=== PATIENT | female | born 1965 | race Caucasian/White ===

== ENCOUNTER 2018-10-17 08:11 | Outpatient (REF) | payer OTHER, SELFPAY ==
[2018-10-18 11:39] LABS: Campylobacter PCR SEE COMMENTS; Salmonella PCR SEE COMMENTS; Shiga Toxin PCR SEE COMMENTS; Shigella/Enteroinvasive Ecoli SEE COMMENTS
== END 2018-10-17 08:31 ==
LOC: LBN 08:11
PROVIDERS: PCP Nurse Practitioner Family; Visit Provider Nurse Practitioner Family
DX: R19.7 Diarrhea, unspecified (principal)
CPT/HCPCS: 87505; 87324

== ENCOUNTER 2019-01-13 09:54 | Outpatient (CLI) | payer OTHER, SELFPAY ==
[2019-01-13 13:08] LABS: BUN 20 mg/dL (7-18); CREATININE 0.99 mg/dL (0.55-1.02); Estimated GFR 58.45 (mL/min/1.73m2)
== END 2019-01-13 10:14 ==
PROVIDERS: PCP Nurse Practitioner Family; Visit Provider Nurse Practitioner Family
DX: R60.0 Localized edema (principal)
CPT/HCPCS: 36415; 84520; 82565

== ENCOUNTER 2019-03-09 07:32 | Outpatient (CLI) | payer OTHER, SELFPAY ==
[2019-03-09 09:29] LABS: Bilirubin Negative (Negative); Blood Negative (Negative); Clarity Clear; Glucose Negative (Negative); Ketones Negative (Negative); Leukocyte Esterase Trace (Negative); Nitrite Negative (Negative); Specific Gravity 1.025 (1.005-1.025); Urobilinogen 0.2 EU/dL (Up TO 0.2); pH 5.5 (5-8)
[2019-03-09 09:41] LABS: Calculated LDL 130; Cholesterol 228 mg/dL (50-200); HDL Cholesterol 53 mg/dL (40-60); Triglyceride 227 mg/dL (30-150)
[2019-03-09 10:06] LABS: Bacteria Few HPF (Negative); Crystals Few Amorphous HPF (Negative); Epithelial Cells Few HPF (Negative); Mucus Heavy (Negative); RBC 0-2 (0-2)
[2019-03-09 10:07] LABS: C & S Indicated? Yes
== END 2019-03-09 07:52 ==
PROVIDERS: PCP Nurse Practitioner Family; Visit Provider Nurse Practitioner Family
DX: R60.0 Localized edema (principal); E78.5 Hyperlipidemia, unspecified
CPT/HCPCS: 80061; 83721; 81003; 81015; 87086

== ENCOUNTER 2019-08-12 01:10 | Outpatient (CLI) | payer OTHER, SELFPAY ==
--- NOTE | 2019-08-12 16:20 | DI.MAMMO_ITS ---
EXAM: MAMMO SCREENING CLINICAL HISTORY: SCREENING, Z12.31 TECHNIQUE: Mammograms were interpreted according to the usual protocol including computer analysis w bookletmobile CAD system, tomosynthesis and C-view imaging. COMPARISON: [id number] FINDINGS: The breasts are composed of scattered fibroglandular densities, breast density category B. There are no suspicious masses or suspicious microcalcifications. There has been no interval change when eulalio red with the previous examinations. IMPRESSION: Category 1, negative mammogram. Yearly screening mammography is recommended. BI-RADS Cat 1 - Negative Breast Density - Category B - Scattered areas of fibroglandular density
== END 2019-08-12 01:30 ==
PROVIDERS: PCP Nurse Practitioner Family; Visit Provider Nurse Practitioner Family
DX: Z12.31 Encounter for screening mammogram for malignant neoplasm of breast (principal)
CPT/HCPCS: 77063; 77067

== ENCOUNTER 2019-11-17 14:33 | Outpatient (CLI) | payer OTHER, SELFPAY ==
--- NOTE | 2019-11-17 14:00 | DI.RAD_ITS ---
EXAM: XR KNEE RT 3V AP,LAT,FORREST CLINICAL HISTORY: eval R knee pain TECHNIQUE: COMPARISON: No exams were available for comparison FINDINGS: Three views were obtained. The cartilaginous joint space of the medial tibiofemoral joint appears mi ldly narrowed. There is marginal osteophyte formation most marked posteriorly on the proximal tibia. No other significant bony or soft tissue abnormality seen. IMPRESSION: DJD predominantly involving medial tibiofemoral joint.
== END 2019-11-17 14:53 ==
PROVIDERS: PCP Nurse Practitioner Family; Visit Provider Student in an Organized Health Care Education/Training Program
DX: M25.561 Pain in right knee (principal); M17.11 Unilateral primary osteoarthritis, right knee
CPT/HCPCS: 73562

== ENCOUNTER 2019-12-09 14:23 | Outpatient (CLI) | payer OTHER, SELFPAY ==
--- NOTE | 2019-12-09 15:35 | DI.MRI_ITS ---
EXAM: MR LOWER JOINT RT WO CLINICAL HISTORY: continued right knee pain, difficulty ambulating,INTERNAL DERANGEMENT,RT KNEE INJU RY,M23.91. TECHNIQUE: Multiplanar multisequence MRI was performed. COMPARISON: No exams were available for comparison FINDINGS: MR examination of the knee was performed according to the usual protocol. Minimal subchondral signal abnormality noted in the central portion of the patella. Mildly abnormal signal also present in med ial tibial plateau and central portion of the tibia as well as minimally in the medial femoral condyl e, presumably on a degenerative basis. Mild marginal osteophyte formation noted involving the joints of the knee, most marked at the medial tibiofemoral joint. Articular cartilage of the patella is mildly thinned and shows mildly abnormal signal. Central chond ral defect is noted measuring roughly 8 x 10 millimeters. Articular cartilage of the tibiofemoral joints is thinned. There are focal cartilage defects of the medial femoral condyle, particularly on its central aspect and minimal articular cartilage roughening is noted involving medial tibial articular surface and lateral tibial articular surface without foca l cartilage defect. No significant collateral ligament abnormality is seen. Question minimal fraying of lateral meniscus posteriorly. No discrete tear. There is a complex nond isplaced tear of the posterior horn of the medial meniscus. No cruciate ligament tear is seen. Apart from the aforementioned patellar articular cartilage abnormalities, no significant abnormality of the extensor mechanism is seen. Mild soft tissue edema noted anterior to the anterior tibial tube rcle and patellar tendon without patellar tendon tear. Minimal tendinosis may be present at the regan llar tendon attachment on the patella. IMPRESSION: Degenerative changes including articular cartilage thinning and focal defects of all 3 joint compartm ents. Posterior horn medial meniscal tear, nondisplaced DATA REPOSITORY:
== END 2019-12-09 14:43 ==
PROVIDERS: PCP Nurse Practitioner Family; Visit Provider Student in an Organized Health Care Education/Training Program
DX: M25.561 Pain in right knee (principal); M23.91 Unspecified internal derangement of right knee; M17.11 Unilateral primary osteoarthritis, right knee; S83.241A Other tear of medial meniscus, current injury, right knee, initial encounter
CPT/HCPCS: 73721

== ENCOUNTER 2020-03-12 08:43 | Outpatient (CLI) | payer OTHER, SELFPAY ==
[2020-03-13 17:39] LABS: COVID-19 RT-PCR UVMMC Result Negative (Negative)
== END 2020-03-12 09:03 ==
PROVIDERS: PCP Nurse Practitioner Family; Visit Provider Student in an Organized Health Care Education/Training Program
DX: Z11.59 Encounter for screening for other viral diseases (principal); Z01.818 Encounter for other preprocedural examination
CPT/HCPCS: U0003

== ENCOUNTER 2020-03-16 08:21 | Day surgery (SDC) | payer OTHER, SELFPAY ==
[2020-03-16] VITALS (11 sets, daily range): BP systolic 116–155; BP diastolic 63–97; PULSE 67–84; RESP 14–24; TEMP 36.2–37.2; O2SAT 93–100
--- NOTE | 2020-03-16 07:51 | HPE_ITS ---
Documented by User: CASH Umana 03/16/20 08:49 Date of service: 03/16/20 Assessment and Plan Assessment and plan (1) Tear of medial meniscus of right knee: Status: Acute Assessment and plan: Right knee arthroscopy with partial medial meniscectomy. Details of surgery were discussed with patient as well as risks and pertinent anatomy. All questions were answered. History of Present Illness History of Present Illness Chief Complaint: Right knee pain Narrative: Flor is a 54 year old female who comes in today for a right knee arthroscopy. She has been dealing with right knee pain for about 8 months now, and she states that it is worse when she gets up from a seated position or if she is standing for a prolonged period of time. She has had an injection which did not relieve her pain for any length of time. She had imaging done including an MRI which revealed some OA in the right knee that involves all three compartments, but she also has a meniscal tear of the posterior horn. Since she has failed conservative treatment and she does have a meniscal tear, Dr. Griffith does offer a right knee arthroscopy with partial medial meniscectomy and Flor is anxious to proceed. Pertinent Surgical Information Patient denies history of hypertension, CVA, NM, angina, asthma, COPD, renal or liver disorders, hepatitis, bleeding disorders, diabetes, immune or thyroid disorders. No complications from anesthesia. Review of Systems Constitutional Constitutional: Denies fever(s) ENT Ears, Nose, Mouth, and Throat: Denies dizziness and Denies sore throat Cardiovascular Cardiovascular: Denies chest pain, Denies palpitations and Denies dyspnea Respiratory Respiratory: Denies cough and Denies dyspnea Gastrointestinal Gastrointestinal: Denies abdominal pain, Denies melena, Denies hematochezia, Denies diarrhea, Denies nausea and Denies vomiting Genitourinary Genitourinary: Denies hematuria and Denies dysuria Neurologic Neurologic: Denies dizziness Endocrine Endocrine: Denies palpitations [facility] Medical History Asthma (Chronic) Surgical History section x2 History of thoracotomy (Acute) Social History Smoking/Tobacco Use Status: Never Alcohol Intake: current Alcohol Intake frequency: holidays/special occasions only Drug use: Never Substance use type: does not use Current gender identity: female Do you feel safe at home: Yes Do you feel safe in your relationship?: Yes Meds Home Medications and Allergies Home Medications Medication Instructions Recorded Confirmed Type Zyrtec 10 mg PO DAILY 10/17/13 03/16/20 History calcium carb and citrate-vitD3 1 cap DAILY 10/17/13 03/16/20 History esomeprazole magnesium [Nexium] 40 mg PO DAILY 10/17/13 03/16/20 History gabapentin 300 mg PO DAILY 10/17/13 03/16/20 History multivitamin [Daily Multi-Vitamin] 1 cap PO DAILY 10/17/13 03/16/20 History sertraline [Zoloft] 200 mg PO DAILY 10/17/13 03/16/20 History cyclobenzaprine 5 mg PO PRN PRN 06/28/15 03/16/20 History trazodone 50 mg PO HS tab-cap 07/17/17 03/16/20 History montelukast [Singulair] 10 mg PO DAILY 03/01/18 03/16/20 History lamotrigine 25 mg tablet 50 mg PO DAILY tab 11/17/19 03/16/20 History Glucosamine Chondroitin 1 cap PO BID 03/12/20 03/16/20 History atorvastatin 40 mg PO HS 03/12/20 03/16/20 History acetaminophen 500 mg PO Q4H PRN #30 cap 03/16/20 Rx hydrocodone-acetaminophen 1 tab PO Q6H PRN #6 tab 03/16/20 Rx ibuprofen 600 mg PO TID PRN #30 tab 03/16/20 Rx Allergies Allergy/AdvReac Type Severity Reaction Status Date / Time Penicillins Allergy Unknown Skin Rash Unverified 03/16/20 08:25 rizatriptan benzoate AdvReac Unknown chst tight Unverified 03/16/20 08:25 [From [facility]] Exam Const General: cooperative and no acute distress Orientation: alert and awake [facility] Head: normocephalic and atraumatic General nose exam: no nasal discharge Eyes Conjunctivae: conjunctivae normal Sclera: sclerae normal Resp Effort & Inspection: normal respiratory effort Auscultation: clear to auscultation bilaterally and no wheezes Cardio Rate: regular rate Rhythm: regular rhythm Heart Sounds: S1 normal, S2 normal and no murmurs GI Palpation: soft, no hepatosplenomegaly and nontender Auscultation: normal bowel sounds Documented by User: Tereso Griffith MD 03/16/20 09:20 [facility] Medical History Asthma (Chronic) Surgical History section x2 History of thoracotomy (Acute) Social History Smoking/Tobacco Use Status: Never Alcohol Intake: current Alcohol Intake frequency: holidays/special occasions only Drug use: Never Substance use type: does not use Current gender identity: female Do you feel safe at home: Yes Do you feel safe in your relationship?: Yes Meds Home Medications and Allergies Home Medications Medication Instructions Recorded Confirmed Type Zyrtec 10 mg PO DAILY 10/17/13 03/16/20 History calcium carb and citrate-vitD3 1 cap DAILY 10/17/13 03/16/20 History esomeprazole magnesium [Nexium] 40 mg PO DAILY 10/17/13 03/16/20 History gabapentin 300 mg PO DAILY 10/17/13 03/16/20 History multivitamin [Daily Multi-Vitamin] 1 cap PO DAILY 10/17/13 03/16/20 History sertraline [Zoloft] 200 mg PO DAILY 10/17/13 03/16/20 History cyclobenzaprine 5 mg PO PRN PRN 06/28/15 03/16/20 History trazodone 50 mg PO HS tab-cap 07/17/17 03/16/20 History montelukast [Singulair] 10 mg PO DAILY 03/01/18 03/16/20 History lamotrigine 25 mg tablet 50 mg PO DAILY tab 11/17/19 03/16/20 History Glucosamine Chondroitin 1 cap PO BID 03/12/20 03/16/20 History atorvastatin 40 mg PO HS 03/12/20 03/16/20 History acetaminophen 500 mg PO Q4H PRN #30 cap 03/16/20 Rx hydrocodone-acetaminophen 1 tab PO Q6H PRN #6 tab 03/16/20 Rx ibuprofen 600 mg PO TID PRN #30 tab 03/16/20 Rx Allergies Allergy/AdvReac Type Severity Reaction Status Date / Time Penicillins Allergy Unknown Skin Rash Unverified 03/16/20 08:25 rizatriptan benzoate AdvReac Unknown chst tight Unverified 03/16/20 08:25 [facility]
[2020-03-16] MEDS: Lactated Ringers 1,000 ML 80 ML IV (08:55)
--- NOTE | 2020-03-16 09:12 | PDOC.DSDIS_ITS ---
Documented by User: CASH Umana 03/16/20 09:50 Discharge Plan Disposition Patient Disposition: HOME Condition: Good Discharge Details Reason For Visit: Right knee arthroscopy Attending Provider: Tereso Griffith Primary Care Provider: Yashira Cole Home Meds and New Rx's Prescriptions: New ibuprofen 600 mg tablet 600 mg PO TID PRN (Reason: pain) Qty: 30 RF: 0 acetaminophen 500 mg capsule 500 mg PO Q4H PRN (Reason: pain) Qty: 30 RF: 0 hydrocodone-acetaminophen 5-325 mg tablet 1 tab PO Q6H PRN PRN (Reason: pain) Qty: 10 RF: 0 Continued trazodone 50 MG tablet 50 mg PO HS RF: 0 multivitamin [Daily Multi-Vitamin] 1 EACH tablet 1 cap PO DAILY RF: 0 sertraline [Zoloft] 100 MG tablet 200 mg PO DAILY RF: 0 esomeprazole magnesium [Nexium] 40 MG capsule,delayed release(DR/EC) 40 mg PO DAILY RF: 0 gabapentin 300 MG capsule 300 mg PO DAILY RF: 0 calcium carb and citrate-vitD3 1 EACH tablet extended release 1 cap DAILY RF: 0 Zyrtec 10 MG capsule 10 mg PO DAILY RF: 0 lamotrigine [Lamictal] 25 mg tablet 50 mg PO DAILY RF: 0 cyclobenzaprine 10 MG tablet 5 mg PO PRN PRNRF: 0 atorvastatin 40 mg Tablet 40 mg PO HS RF: 0 Glucosamine Chondroitin 550-30-1 mg Capsule 1 cap PO BID RF: 0 montelukast [Singulair] 10 MG tablet 10 mg PO DAILY RF: 0 Discontinued acetaminophen [Tylenol Extra Strength] 500 MG tablet 1,000 mg PO PRN PRNRF: 0 ibuprofen [Advil] 200 MG tablet 800 mg PO PRN PRNRF: 0 Discharge Instructions Stand Alone Forms: Crutch Training Instructions, [facility] Knee Arthroscopy, Ralph Anderson ([facility]) Referrals: Tereso Griffith MD [ [facility] STAFF PHYSICIAN] - Equipment/Supplies: Partial Weight Bearing Crutches Activity:: Activity as Tolerated Remove Dressings/Wound Care:: 72 hours Shower/Bathe:: 72 hours Diet:: As Tolerated Discharge Orders Discharge Orders: Discharge Order (Routine); Ordered 03/16/20 Ordered By: Cali Mccabe Discharge Data Discharge Date/Time-TO BE ENTERED AT DEPARTURE: 03/16/20 13:30 Discharge Comment: Pt wheeled out to her spouse's vehichle. DS: Diagnosis Discharge Diagnosis (1) Tear of medial meniscus of right knee: Status: Acute Documented by User: Tereso Griffith MD 03/16/20 13:52 Discharge Plan Disposition Patient Disposition: HOME Condition: Good Discharge Details Reason For Visit: Right knee arthroscopy Attending Provider: Tereso Griffith Primary Care Provider: Yashira Cole Home Meds and New Rx's Prescriptions: New ibuprofen 600 mg tablet 600 mg PO TID PRN (Reason: pain) Qty: 30 RF: 0 acetaminophen 500 mg capsule 500 mg PO Q4H PRN (Reason: pain) Qty: 30 RF: 0 hydrocodone-acetaminophen 5-325 mg tablet 1 tab PO Q6H PRN PRN (Reason: pain) Qty: 10 RF: 0 Continued trazodone 50 MG tablet 50 mg PO HS RF: 0 multivitamin [Daily Multi-Vitamin] 1 EACH tablet 1 cap PO DAILY RF: 0 sertraline [Zoloft] 100 MG tablet 200 mg PO DAILY RF: 0 esomeprazole magnesium [Nexium] 40 MG capsule,delayed release(DR/EC) 40 mg PO DAILY RF: 0 gabapentin 300 MG capsule 300 mg PO DAILY RF: 0 calcium carb and citrate-vitD3 1 EACH tablet extended release 1 cap DAILY RF: 0 Zyrtec 10 MG capsule 10 mg PO DAILY RF: 0 lamotrigine [Lamictal] 25 mg tablet 50 mg PO DAILY RF: 0 cyclobenzaprine 10 MG tablet 5 mg PO PRN PRNRF: 0 atorvastatin 40 mg Tablet 40 mg PO HS RF: 0 Glucosamine Chondroitin 550-30-1 mg Capsule 1 cap PO BID RF: 0 montelukast [Singulair] 10 MG tablet 10 mg PO DAILY RF: 0 Discontinued acetaminophen [Tylenol Extra Strength] 500 MG tablet 1,000 mg PO PRN PRNRF: 0 ibuprofen [Advil] 200 MG tablet 800 mg PO PRN PRNRF: 0 Discharge Instructions Stand Alone Forms: Crutch Training Instructions, [facility] Knee Arthroscopy, Ralph Anderson ([facility]) Referrals: Tereso Griffith MD [ [facility] STAFF PHYSICIAN] - Equipment/Supplies: Partial Weight Bearing Crutches Activity:: Activity as Tolerated Remove Dressings/Wound Care:: 72 hours Shower/Bathe:: 72 hours Diet:: As Tolerated Discharge Orders Discharge Orders: Discharge Order (Routine); Ordered 03/16/20 Ordered By: Cali Mccabe Discharge Data Discharge Date/Time-TO BE ENTERED AT DEPARTURE: 03/16/20 13:30 Discharge Comment: Pt wheeled out to her spouse's vehichle.
[2020-03-16] MEDS: ceFAZolin 2 GM/50 ML BAG IVPB (09:40)
[2020-03-16] MEDS: Bupivacaine 0.5% Pres-Free 30 ML VIAL (09:50)
[2020-03-16] MEDS: fentaNYL 100 MCG/2 ML VIAL IVP ×2 (10:58→11:08)
[2020-03-16] MEDS: ACETAMINOPHEN 1,000 MG/100 ML BTL 100 MG (11:26)
[2020-03-16] MEDS: HYDROcodone 5/Acetaminophen 325 TAB PO ×2 (12:01→12:57)
--- NOTE | 2020-03-16 13:52 | W.PM.OP ---
Date of service: 03/16/20 Time of Service: 11:52 Operative Note Operative Note DATE OF PROCEDURE: 03/16/20 PRE-OP DIAGNOSIS: Right knee medial meniscal tear, chondromalacia POST-OP DIAGNOSIS: same PROCEDURE: Right knee arthroscopic partial medial meniscectomy SURGEON: Tereso Griffith ANESTHESIA: MACKENZIE ESTIMATED BLOOD LOSS: 0 PATHOLOGY: none sent TOURNIQUET TIME: 0 COMPLICATIONS: None Patient was transported to: PACU Patient's condition: stable Indications: I have seen Flor in clinic for symptoms of a meniscus tear. This was confirmed based on MRI and exam findings. Nonoperative measures were exhausted but disability and pain persisted. I discussed knee arthroscopy with meniscal intervention with the patient. I reviewed the risks of the procedure to include, but not limited to, bleeding, infection, pain, stiffness, damage to nerves or vessels, recurrence, blood clot. Despite these risks, the patient elected to proceed. Findings: A diagnostic arthroscopy was performed with the following findings: Suprapatellar Pouch: Significant inflammation, no loose bodies Medial Compartment: Complex medial meniscal tear with the primary radial component at the horn and extending towards the root, intact meniscal root, grade II/III chondromalacia of the femur and grade 1 changes of the tibia, no loose bodies Notch: ACL and PCL were intact Lateral Compartment: No meniscal tear, intact meniscal root, no significant chondromalacia or signs of arthritis, no loose bodies Patellofemoral Compartment: Focal area of grade II chondromalacia over the apex of the patella, no apparent patellar maltracking Procedure Description: Flor was greeted in the preoperative holding area where the correct side was identified and marked. The consent was reviewed with the patient and signed. The history and physical was updated. All questions were answered. She was taken back to the operating room. The patient was placed into the supine position on the operating room table. A nonsterile tourniquet was placed high onto the leg but not used. All bony prominences were well padded. Prophylactic antibiotics in the form of cefazolin were administered. The right leg was then prepped with Chloraprep and draped in a standard fashion with stockinette and extremity drape. A timeout to confirm correct identity, side and site, procedure, allergies, anesthesia, and medical concerns was performed. The leg was placed into a pneumatic leg kilpatrick, [id number]. A standard lateral portal was made at the lateral border of the patella tendon in line with the inferior pole of the patella, soft spot. The skin and deep tissue was incised sharply and the blunt trochar was inserted atraumatically. A diagnostic arthroscopy was performed and the findings are listed above. The suprapatellar pouch had some notable inflammatory change. The patellofemoral articulation showed focal area of grade II chondromalacia at the apex as well as good tracking. The lateral gutter had no loose bodies and the medial gutter had no loose bodies. The knee was brought into some valgus stress in extension to open the medial compartment. A medial portal was made, localized by a spinal needle. The portal was created with an #11 blade through skin and capsule under direct visualization avoiding any meniscal injury. A probe was then inserted into the medial compartment. The medial compartment was fully inspected. The chondral surface of the tibia showed some diffuse grade I chondromalacia and the surface of the femur showed grade II/III chondromalacia over the distal aspect. There is no exposed bone. The medial meniscus had a complex meniscal tear which had a primary radial component between the posterior horn and the root. There is a large loose fragment. After evaluation, the meniscus was debrided down to a stable base using a series of biters and arthroscopic paula. It was probed afterwards to confirm that the tear had been removed and the meniscus was stable. The notch was then inspected which showed an intact ACL and an intact PCL. The leg was then brought into a figure of 4 position. The lateral compartment was fully inspected with the arthroscope and a probe. The chondral surface of the lateral femur showed no significant chondromalacia. The chondral surface of the lateral tibia showed no significant chondromalacia. The lateral meniscus had no meniscal tear. The arthroscope was brought back into the suprapatellar pouch and the leg was in full extension. Some of the inflammatory changes were debrided with a shaver. The knee was thoroughly irrigated with the arthroscopic fluid on high flow and pressure. Inflow was stopped and excess fluid was removed. The wounds were closed with 4-0 Nylon. They were dressed with Xeroform, 4x4 gauze, ABD pad, Kerlix and an BRADEN wrap. A cryo-cuff was applied. The patient tolerated the procedure well and was returned to the Same Day Surgery area in a stable condition suffering no known complication.
== END 2020-03-16 13:30 | disposition home or self-care (01) ==
PROVIDERS: PCP Nurse Practitioner Family; Visit Provider Student in an Organized Health Care Education/Training Program
PROC: (CPT 29870; principal; 2020-03-16 09:30)
DX: S83.231A Complex tear of medial meniscus, current injury, right knee, initial encounter (principal); X58.XXXA Exposure to other specified factors, initial encounter; M94.261 Chondromalacia, right knee
CPT/HCPCS: 29881; NC; E0114; J0131; J0690; J1100; J1885; J2405; J3010

== ENCOUNTER 2020-08-16 03:21 | Outpatient (REF) | payer OTHER, SELFPAY ==
[2020-08-17 17:24] LABS: SARS-CoV-2 RNA Not Detected (NotDetected); SARS-CoV-2 RNA Source Nasal/Nares
== END 2020-08-16 03:41 ==
LOC: LBO 03:21
PROVIDERS: PCP Nurse Practitioner Family; Visit Provider Nurse Practitioner Family
DX: Z11.59 Encounter for screening for other viral diseases (principal)
CPT/HCPCS: U0003

== ENCOUNTER 2020-11-09 01:00 | Outpatient (CLI) | payer OTHER, SELFPAY ==
--- NOTE | 2020-11-09 16:02 | DI.MAMMO_ITS ---
EXAM: MG MAMMO SCREENING CLINICAL HISTORY: SCREENING, Z12.31. TECHNIQUE: Bilateral full field digital CC and MLO mammographic images were obtained with 3D tomosyn thesis and utilizing computer aided detection (CAD). COMPARISON: Prior mammograms dating back to 2010, the most recent being July 2019. FINDINGS: In the central aspect of the right breast there is a nodular density evident on 3D cc imaging which i s located approximately 7 cm in from the nipple. Spot compression 3D cc view and ultrasound recommen ded. In the right breast there is a noncalcified lobulated 7 x 5 millimeter nodule located approximately 4 cm in from the nipple. Spot compression view and ultrasound recommended. There are no malignant-ap pearing microcalcification groups in this region nor elsewhere in either breast. Benign oil cyst not ed medially in left breast. There is no significant architectural distortion nor skin thickening-re traction. IMPRESSION: Bilateral nodules as described above. Bilateral spot compression 3D views and breast ultrasound jessica mmended BI-RADS Category 0 - Assessment Incomplete: Need additional imaging evaluation Breast Density - Category B - Scattered areas of fibroglandular density Breast density Category C or D implies that the patient has dense breast tissue. Dense breast tissue can make it harder to find cancer on a mammogram. Dense breast tissue is also associated with an incr eased risk of breast cancer. This information about the result of the mammogram report was provided to the patient to raise their awareness. Use this report when you speak with the patient about their risks for breast cancer, which includes their family history. At that time, you may recommend additional screening tests (Ultrasoun d or MRI) as these tests may add significant information. A negative radiographic report should not delay biopsy if a dominant or clinically suspicious mass is present. Up to ten percent of cancers are not identified on mammography. A negative report may reinforce clinical impression. Adenosis and dense breasts may obscure an underlying neoplasm. False positive reports average 6 to 10%. Patient will receive a letter notifying them of these results.
== END 2020-11-09 01:01 ==
LOC: DI 01:00
PROVIDERS: PCP Nurse Practitioner Family; Visit Provider Nurse Practitioner Family
DX: Z12.31 Encounter for screening mammogram for malignant neoplasm of breast (principal); R92.8 Other abnormal and inconclusive findings on diagnostic imaging of breast
CPT/HCPCS: 77063; 77067

== ENCOUNTER 2020-11-17 12:26 | Outpatient (REF) | payer OTHER, SELFPAY ==
[2020-11-17 13:21] LABS: Bilirubin Negative (Negative); Blood Negative (Negative); Clarity Sl Cloudy (Clear); Glucose Negative (Negative); Ketones Negative (Negative); Leukocyte Esterase Trace (Negative); Nitrite Negative (Negative); Specific Gravity 1.015 (1.005-1.025); Urobilinogen 0.2 EU/dL (Up TO 0.2)
[2020-11-17 13:31] LABS: Bacteria Few HPF (Negative); C & S Indicated? Yes; Casts Negative LPF (Negative); Crystals Negative HPF (Negative); Epithelial Cells Few HPF (Negative); Mucus Negative (Negative); RBC 0-2 HPF (0-2)
== END 2020-11-17 12:27 | disposition home or self-care (01) ==
LOC: LBN 12:26
PROVIDERS: PCP Nurse Practitioner Family; Visit Provider Nurse Practitioner Family
DX: R31.29 Other microscopic hematuria (principal)
CPT/HCPCS: 81003; 81015; 87086

== ENCOUNTER 2020-11-19 02:54 | Outpatient (CLI) | payer OTHER, SELFPAY ==
--- NOTE | 2020-11-19 14:20 | DI.MAMMO_ITS ---
EXAM: MG MAMMO SCREEN CALL BACK BI CLINICAL HISTORY: F/U MAMMO, BILAT NODULES TECHNIQUE: Spot compression views and tomographic imaging were performed. COMPARISON: Two thousand eleven through 09 November 2020 FINDINGS: Right breast:No suspicious masses or suspicious microcalcifications are seen. No persistent abnormality is seen on the additional views performed. The findings are consistent wit h overlying fibroglandular tissue. There has been no significant change from prior exams. Left breast: There is a persistent smoothly marginated nodule with a central fatty hilum consistent w ith intramammary lymph node. This is not appear significantly changed from previous exams. IMPRESSION: BI-RADS Category 1, Negative Yearly screening mammography is recommended. Breast Density - Category B, scattered fibroglandular densities.
== END 2020-11-19 02:55 ==
LOC: DI 02:55
PROVIDERS: PCP Nurse Practitioner Family; Visit Provider Nurse Practitioner Family
DX: Z12.31 Encounter for screening mammogram for malignant neoplasm of breast (principal); R92.8 Other abnormal and inconclusive findings on diagnostic imaging of breast; N64.59 Other signs and symptoms in breast
CPT/HCPCS: 77063; 77067

== ENCOUNTER 2021-01-12 07:40 | Outpatient (RCR) | payer OTHER, SELFPAY ==
[2021-01-12 08:03] LABS: Abs Immature Grans 0.01 10^3/uL (0.0-0.06); Absolute Basophil Count 0.04 10^3/uL (0.0-0.2); Absolute Eosinophil Count 0.13 10^3/uL (0.0-0.7); Absolute Lymphocyte Count 2.67 10^3/uL (1.2-3.4); Absolute Monocyte Count 0.56 10^3/uL (0.1-0.8); Absolute Neutrophil Count 4.32 10^3/uL (1.2-6.7); Basophils % 0.5; Eosinophils % 1.7; HCT 39.3 % (36.0-46.0); HGB 12.9 g/dL (11.2-15.7); Immature Grans % 0.1; Lymphocytes % 34.5; MCH 30.1 pg (27.0-33.0); MCHC 32.8 % (32.0-36.0); MCV 91.8 fL (80-95); MPV 10.2 fL (8.0-11.0); Monocytes % 7.2; Nucleated RBC 0 %; Platelet Count 281 10^3/uL (130-400); RBC 4.28 10^6/uL (3.93-5.22); RDW 13.4 % (11.7-14.6); WBC 7.73 10^3/uL (4.4-10.8)
[2021-01-12 08:19] LABS: ALT 35 U/L (14-59); AST 17 U/L (15-37); Albumin 3.8 g/dL (3.4-5.0); Alkaline Phosphatase 161 U/L (46-116); BUN 26 mg/dL (7-18); Bilirubin, Total 0.3 mg/dL (0.2-1.0); CREATININE 1.1 mg/dL (0.55-1.02); Calcium 8.9 mg/dL (8.5-10.1); Calculated LDL 87 mg/dL (<100); Chloride 104 mmol/L (98-107); Cholesterol 172 mg/dL (<200); Estimated GFR 51.38 (mL/min/1.73m2); Glucose 115 mg/dL (74-106); HDL Cholesterol 55 mg/dL (40-60); Potassium 4.1 mmol/L (3.5-5.1); Sodium 141 mmol/L (136-145); Total Protein 7.7 g/dL (6.4-8.2); Triglyceride 154 mg/dL (<150)
[2021-01-12 11:08] LABS: Bilirubin Negative (Negative); Blood Negative (Negative); Clarity Clear (Clear); Glucose Negative (Negative); Ketones Negative (Negative); Leukocyte Esterase Trace (Negative); Nitrite Negative (Negative); Specific Gravity 1.025 (1.005-1.025); Urobilinogen 0.2 EU/dL (Up TO 0.2); pH 5.5 (5-8)
[2021-01-12 11:29] LABS: Bacteria Few HPF (Negative); C & S Indicated? Yes; Casts Negative LPF (Negative); Crystals Negative HPF (Negative); Epithelial Cells Few HPF (Negative); Mucus Trace (Negative); RBC Negative HPF (0-2)
== END 2021-01-21 23:59 | disposition home or self-care (01) ==
LOC: INF 07:40
PROVIDERS: PCP Nurse Practitioner Family; Visit Provider Nurse Practitioner Family
DX: R31.29 Other microscopic hematuria (principal); G95.0 Syringomyelia and syringobulbia
CPT/HCPCS: 36415; 80053; 80061; 81003; 81015; 85025; 87086

== ENCOUNTER 2021-09-02 09:29 | Outpatient (CLI) | payer OTHER, SELFPAY ==
[2021-09-02 15:46] LABS: Abs Immature Grans 0.04 10^3/uL (0.0-0.06); Absolute Basophil Count 0.03 10^3/uL (0.0-0.2); Absolute Eosinophil Count 0.12 10^3/uL (0.0-0.7); Absolute Lymphocyte Count 4.05 10^3/uL (1.2-3.4); Absolute Monocyte Count 0.89 10^3/uL (0.1-0.8); Absolute Neutrophil Count 5.37 10^3/uL (1.2-6.7); Basophils % 0.3; Eosinophils % 1.1; HCT 38.9 % (36.0-46.0); HGB 12.5 g/dL (11.2-15.7); Immature Grans % 0.4; Lymphocytes % 38.6; MCH 29.7 pg (27.0-33.0); MCHC 32.1 % (32.0-36.0); MCV 92.4 fL (80-95); MPV 10.5 fL (8.0-11.0); Monocytes % 8.5; Neutrophils % 51.1; Nucleated RBC 0 %; Platelet Count 304 10^3/uL (130-400); RBC 4.21 10^6/uL (3.93-5.22); RDW 13.4 % (11.7-14.6); RDW-SD 45.7 fL
[2021-09-02 16:40] LABS: ALT 36 U/L (14-59); AST 21 U/L (15-37); Alkaline Phosphatase 165 U/L (46-116); Amylase 32 U/L (25-115); Anion Gap 7.1 mmol/L (3-11); BUN 17 mg/dL (7-18); Bilirubin, Total 0.3 mg/dL (0.2-1.0); CO2 29.9 mmol/L (21.0-32.0); Calcium 9.4 mg/dL (8.5-10.1); Chloride 102 mmol/L (98-107); Estimated GFR 57.15 (mL/min/1.73m2); Glucose 120 mg/dL (74-106); Lipase 88 U/L (73-393); Potassium 4.5 mmol/L (3.5-5.1); Sodium 139 mmol/L (136-145); Total Protein 7.6 g/dL (6.4-8.2)
[2021-09-07 20:24] LABS: GGT 44 U/L (5-55)
[2021-09-09 10:37] LABS: Hepatitis A Antibody IgM Negative (Negative); Hepatitis B Core Antibody Negative (Negative); Hepatitis B surface Ag Negative (Negative); Hepatitis C Ab w Rflx HCV PCR Negative (Negative)
== END 2021-09-02 09:30 | disposition home or self-care (01) ==
LOC: LBO 09-08 09:36
PROVIDERS: PCP Nurse Practitioner Family; Visit Provider Nurse Practitioner Family
DX: R11.0 Nausea (principal); R74.8 Abnormal levels of other serum enzymes; Z11.59 Encounter for screening for other viral diseases
CPT/HCPCS: 36415; 80053; 83690; 86704; 86709; 86803; 87340; 82150; 82977; 85025

== ENCOUNTER 2021-10-03 03:24 | Outpatient (CLI) | payer OTHER, SELFPAY ==
[2021-10-03 16:06] LABS: Source Nasal/Nares
[2021-10-03 20:09] LABS: COVID-19 PCR Negative (Negative)
== END 2021-10-03 03:25 | disposition home or self-care (01) ==
LOC: LBO 03:24
PROVIDERS: PCP Nurse Practitioner Family; Visit Provider Surgery
DX: Z20.822 Contact with and (suspected) exposure to COVID-19 (principal)
CPT/HCPCS: 87635

== ENCOUNTER 2021-10-05 09:53 | Day surgery (SDC) | payer OTHER, SELFPAY ==
--- NOTE | 2021-10-05 07:22 | ENDO_ITS ---
Date of service: 10/05/21 Time of Service: 11:25 Endoscopy Report DATE OF PROCEDURE: 10/05/21 PRE-OP DIAGNOSIS: Abdominal pain and nausea POST-OP DIAGNOSIS: same (chronic gastritis, duodenal diverticulum, gastric polyps) PROCEDURE: EGD with biopsies SURGEON: Sharifa Diop ANESTHESIA TYPE: General:No Airway (Leon Nagel, LEONEL) ESTIMATED BLOOD LOSS: 2 PATHOLOGY: other (antrum bx, gastric polyps bx, GE junction bx) COMPLICATIONS: None DISPOSITION: same day INDICATIONS: piedad is here today because she has not been feeling well for a couple of months. She has had constant nausea, and intermittent diarrhea and RUQ/Epigastric pain. Labs drawn were unremarkable Discussed differential with Piedad of Cholelithiasis/Cholecystitis vs Gastritis/H.pylori infection Discussed repeating an EGD with biopsies to rule out H. pylori. I will also order an US of her abdomen Decrease Nexium to previous dose and add Carafate TID and Zofran Risks, benefits and complications have been reviewed. Complications include but are not limited to bleeding, pain, perforation, sore throat, aspiration, and adverse reaction to the medications. Questions were entertained and answered to their satisfaction and they wished to proceed. No guarantees were given or implied. EGD under sedation FINDINGS: chronic inflammation of the stomach and esophagus Duodenal diverticulum PROCEDURE DESCRIPTION: After informed consent was obtained the patient was take to the procedure room and placed in a supine position. Monitors were applied and a time out was done. The patients name, date of , procedure type, allergies to medications and metal in their body was reviewed. A bite block was placed and the patient was sedated. Once sedated and comfortable the gastroscope was advanced through the oropharynx which was grossly normal into the esophagus. The proximal and mid- esophagus were normal. In the distal esophagus there was mild inflammation noted. The scope was advanced into the stomach and through the pylorus into the 3rd portion of the duodenum. The duodenum was noted to be normal. There was a duodenal diverticulum. The scope was retracted back into the stomach and biopsies were done to rule out H. pylori. There were no ulcers. There were numerous Fundic gland polyps some that looked irritated. The scope was retrofl exed. The cardia and fundus were noted to be normal. There was no hiatal hernia noted. The scope was retracted back into the esophagus and biopsies were done of the GE junction to rule out Ryder's. The Z line was regular. The GE junction was at 38 cm. The scope was removed and the patient was woken up and taken back to [facility] in stable condition. Follow up: I will order a HIDA scan and see the patient afterwards
--- NOTE | 2021-10-05 07:23 | W.PM.DSUDISC ---
Discharge Plan Disposition Patient Disposition: HOME Condition: Good Discharge Details Reason For Visit: Nausea/RUQ/epicgastric pain Attending Provider: Sharifa Diop Primary Care Provider: Yashira Cole Home Meds and New Rx's Prescriptions: Continued halobetasol propionate 0.05 % cream 1 applic topical DAILY PRNRF: 0 epinephrine 0.3 mg/0.3 mL auto-injector 0.3 mg IM ONCE RF: 0 albuterol sulfate [Ventolin HFA] 90 mcg/actuation HFA aerosol inhaler 1 puff inhalation Q4H PRNRF: 0 clobetasol 0.05 % cream 1 applic topical DAILY PRNRF: 0 sucralfate [Carafate] 1 gram tablet 1 g PO TID 14 Days Qty: 42 RF: 0 ondansetron HCl [Zofran] 4 mg tablet 4 mg PO Q6H PRN (Reason: nausea and vomiting) Qty: 30 RF: 0 trazodone 50 MG tablet 50 mg PO HS RF: 0 multivitamin [Daily Multi-Vitamin] 1 EACH tablet 1 cap PO DAILY RF: 0 sertraline [Zoloft] 100 MG tablet 200 mg PO DAILY RF: 0 esomeprazole magnesium [Nexium] 40 MG capsule,delayed release(DR/EC) 40 mg PO DAILY RF: 0 gabapentin 300 MG capsule 300 mg PO DAILY RF: 0 calcium carb and citrate-vitD3 1 EACH tablet extended release 1 cap DAILY RF: 0 Zyrtec 10 MG capsule 10 mg PO DAILY RF: 0 lamotrigine [Lamictal] 25 mg tablet 50 mg PO DAILY RF: 0 cyclobenzaprine 10 MG tablet 5 mg PO PRN PRNRF: 0 atorvastatin 40 mg Tablet 40 mg PO HS RF: 0 Glucosamine Chondroitin 550-30-1 mg Capsule 1 cap PO BID RF: 0 ibuprofen 600 mg tablet 600 mg PO TID PRN (Reason: pain) Qty: 30 RF: 0 acetaminophen 500 mg capsule 500 mg PO Q4H PRN (Reason: pain) Qty: 30 RF: 0 montelukast [Singulair] 10 MG tablet 10 mg PO DAILY RF: 0 Discharge Instructions Instructions: Gastritis (DC) Additional Instructions: Findings: mild chronic inflammation of the stomach and esophagus polyps throughout your stomach most likely due to chronic inflammation and use of PPI ( Nexium) duodenal diverticulum Follow up: after the HIDA scan Please call if you develop: fevers >101.5 Nausea or Vomiting Abdominal pain that is not transient Rectal bleeding that is more then a tbsp A hard abdomen and inability to pass gas DAY SURGERY UNIT POST ENDOSCOPY INSTRUCTIONS Instructions for everyone who is given Anesthesia: For your safety, please do the following for the next 24 Hours: a. Do not drive or operate dangerous equipment b. Do not drink alcohol beverages or use any recreational drugs for the first 24 hours or while taking pain medications. The medications in your body may have a reaction that can be dangerous. c. Do not make any important decisions or sign any important papers 1. Generally there are no restrictions on your activity after a day or so has gone by, but you may feel a bit fatigued for a few days. 2. After you arrive home you may have a light meal and return to a normal diet as you can tolerate it without feeling sick to your stomach. 3. After surgery, you may feel pain or discomfort. This should be only transient, but if it persists please contact your doctor. 4. If there are any questions regarding the findings of your procedure, please feel free to contact your doctor. 6. If you are unable to contact your doctor with a problem, contact the hospital at [phone]. 7. Continue all your regular medications unless directed otherwise. I understand the above instructions and have no questions. Signature of Patient or Responsible Adult Escort Date/Time Name of Responsible Adult Escort Signature of Nurse Date/Time Activity:: Activity as Tolerated Diet:: As Tolerated Discharge Orders Discharge Orders: Discharge Order (Routine); Ordered 10/05/21 Ordered By: Sharifa Diop
[2021-10-05 10:19] VITALS: BP 126/73; PULSE 66; RESP 17; TEMP 36.1; O2SAT 96
[2021-10-05] MEDS: Lactated Ringers 1,000 ML 80 ML IV (10:45)
--- NOTE | 2021-10-05 11:00 | W.ANESPRE ---
General Info Date of Service Date Performed: 10/05/21 Height: 5 ft 3 in Weight: 98.6 kg Body Mass Index (BMI): 38.5 Surgical Procedure: Operation Date: 10/05/21 10:20 Proposed Procedures Side Surgeon p Gastroscopy Sharifa iDop MD Meds Allergies and Home Medications Allergies Allergy/AdvReac Type Severity Reaction Status Date / Time bacitracin Allergy Mild rash Verified 10/05/21 10:10 [From Neosporin ([id number])] neomycin Allergy Mild rash Verified 10/05/21 10:10 [From Neosporin ([id number])] polymyxin B Allergy Mild rash Verified 10/05/21 10:10 [From Neosporin ([id number])] Penicillins Allergy Unknown Skin Rash Unverified 10/05/21 10:10 mold Allergy Anaphylaxis Verified 10/05/21 10:10 rizatriptan benzoate AdvReac Unknown Other (See Unverified 10/04/21 10:39 [From Maxalt] Comment) Home Medication Medication Instructions Recorded Zyrtec 10 mg PO DAILY 10/17/13 calcium carb and citrate-vitD3 1 cap DAILY 10/17/13 esomeprazole magnesium [Nexium] 40 mg PO DAILY 10/17/13 gabapentin 300 mg PO DAILY 10/17/13 multivitamin [Daily Multi-Vitamin] 1 cap PO DAILY 10/17/13 sertraline [Zoloft] 200 mg PO DAILY 10/17/13 cyclobenzaprine 5 mg PO PRN PRN 06/28/15 trazodone 50 mg PO HS tab-cap 07/17/17 montelukast [Singulair] 10 mg PO DAILY 03/01/18 lamotrigine 25 mg tablet 50 mg PO DAILY tab 11/17/19 Glucosamine Chondroitin 1 cap PO BID 03/12/20 atorvastatin 40 mg PO HS 03/12/20 acetaminophen 500 mg PO Q4H PRN #30 cap 03/16/20 ibuprofen 600 mg PO TID PRN #30 tab 03/16/20 albuterol sulfate 90 mcg/actuation 1 puff INHALATION Q4H PRN g 09/22/21 aerosol inhaler clobetasol 0.05 % topical cream 1 applic TOPICAL DAILY PRN 09/22/21 epinephrine 0.3 mg/0.3 mL 0.3 mg IM ONCE 09/22/21 injection, auto-injector halobetasol propionate 0.05 % 1 applic TOPICAL DAILY PRN 09/22/21 topical cream ondansetron HCl 4 mg tablet 4 mg PO Q6H PRN #30 tab 09/22/21 sucralfate 1 gram tablet 1 g PO TID 14 Days #42 tab 09/22/21 Current Visit Medications: Current Medications Generic Name Dose Route Start Last Admin Trade Name Freq PRN Reason Stop Dose Admin Hyoscyamine Sulfate 0.125 mg 10/05/21 07:24 Hyoscyamine 0.125 Mg Sl/Oral/Chew SL DIRECTED PRN Ringer's Solution 1,000 mls @ 80 mls/hr 10/05/21 06:00 10/05/21 10:45 IV 11/03/21 23:59 80 mls/hr INFUSION SADI Administration IV Miscellaneous Supplies 1 each 10/05/21 06:00 Iv Access IV 11/03/21 23:59 DIRECTED SADI Ondansetron HCl 4 mg 10/05/21 07:24 Ondansetron 4 Mg/2 Ml Vial IVP Q4H PRN PRN Nausea / Vomiting Sodium Chloride 0 ml 10/05/21 06:00 Normal Saline Flush 10 Ml Syr IV 11/03/21 23:59 PRN PRN Sodium Chloride 0 ml 10/05/21 06:00 Normal Saline 10 Ml Vial IJ 11/03/21 23:59 DIRECTED PRN Sterile Water 0 ml 10/05/21 06:00 Water,Injection,Sterile 10 Ml Vial IJ 11/03/21 23:59 DIRECTED PRN PFSH Active Problems Active Problems: Problem Status Onset Code GERD (gastroesophageal reflux disease) K21.9 Localized osteoarthritis of right knee M17.11 Abdominal pain R10.9 Nausea R11.0 Medical History Medical History (Updated 10/05/21 @ 10:12 by Sneha Lerner) Asthma Depression Encounter for screening for other viral diseases Hyperlipidemia Internal derangement of right knee Lichen sclerosus Tear of medial meniscus of right knee Surgical History Surgical History (Updated 10/05/21 @ 10:11 by Sneha Lerner) section x2 History of thoracotomy Hx of colonoscopy Hx of esophagogastroduodenoscopy S/P arthroscopic partial medial meniscectomy right knee Tobacco Smoking/Tobacco Use Status: Never Alcohol Alcohol Intake: current Alcohol intake frequency: holidays/special occasions only Alcohol type: beer, wine and hard liquor Substance Use Substance use: Never Substance use type: does not use Details: alcohol: t-10, one drink Vital Signs and Lab Results Vital Signs Most Recent Vital Signs in EMR: Most Recent Vital Signs Temp Pulse Resp BP Pulse Ox 36.1 C L 66 17 126/73 96 10/05/21 10:19 10/05/21 10:19 10/05/21 10:19 10/05/21 10:19 10/05/21 10:19 Lab Results Blood Type / Crossmatch: No Data to Display Complete Blood Count: No Data to Display Complete Metabolic Panel: No Data to Display Liver Function Panel: No Data to Display Coagulation Panel: No Data to Display Cardiac Panel: No Data to Display Arterial Blood Gas: No Data to Display Venous Blood Gas: No Data to Display Pancreas Panel: No Data to Display Thyroid Panel: No Data to Display Infectious Disease: Coronavirus (COVID-19)(PCR) Negative (Negative) 10/03/21 11:05 10/03/21 Coronavirus 2019 Source Nasal/Nares 10/03/21 11:05 10/03/21 Blood Cultures: No Data to Display Toxicology Panel: No Data to Display Imaging and Studies Imaging and Studies Study information below may be from another EMR and interpreted by another provider. Please see original notes in EMR for more complete details. Echocardiogram Summary: Reviewed Anesthesia Assessment and Plan Anesthesia History Personal History: No History of Anesthesia Complications Family History: No Family History of Anesthesia Complications Exercise Tolerance Exercise Tolerance: Metabolic Equivalents>4 Pertinent Negatives Pertinent Negatives: No Symptoms of GERD, No Major Cardiovascular Symptoms or Complaints and No History of CVA/TIA Cardiac & Pulmonary Exam Cardiac Exam: Normal S1/S2 Heart Sounds Pulmonary Exam: Clear Bilateral Breath Sounds Implantable Cardiac Device Does patient have a Pacemaker or an ICD?: No Airway Exam Known Difficult Airway: No Mallampati Class: 3 Mouth Opening: Narrow (< 3cm) Thyromental Distance: Greater than 3 cm Neck Range of Motion: Full ROM Neck Circumference: Normal Teeth Condition: Normal Dentition ASA Classification ASA Score: ASA 3 Emergency Case?: No NPO Status NPO Status: NPO Clears >2 hours, Solids >8 hours Anesthesia Plan Resuscitation Status: Full Code Anesthesia Technique: General Anesthesia Airway Planned: Natural Airway Monitors Used: Standard Monitors
[2021-10-05 11:01] VITALS: BMI 38.5
--- NOTE | 2021-10-05 11:15 | STOM_PTH ---
PATIENT: Flor Kellogg LOC: [facility] U#:[id number] AGE/SX: 56/F ROOM: RE10/05/[address]: Sharifa Diop MD : [id number] BED: DIS: 10/05/2021 SPEC #: [id number] RECD: 10/05/21 13:02 STATUS: LUZ MARIA REWoody #: [id number] MARY: 10/05/21 11:[address]: Sharifa Diop DEPT: Surgical Specimen RECD BY: Shaniqua Thomson ENTERED: 10/05/21 13:03 SP TYPE: STOMACH OTHR DR: Yashira Cole Tissues: 1 - STOMACH BIOPSY 2 - STOMACH BIOPSY 3 - ESOPHAGUS BIOPSY Procedures: GROSS AND MICRO LEVEL 4 Comments: [id number]
[2021-10-05 11:25] VITALS: BP 121/77; PULSE 72; RESP 16; TEMP 36.5; O2SAT 94
[2021-10-05 11:55] VITALS: BP 116/80; PULSE 63; RESP 16; TEMP 36.5; O2SAT 99
--- NOTE | 2021-10-06 11:12 | W.ANESPOSTOP ---
Postoperative Evaluation Date, Time and Location Date Performed: 10/06/21 Time Performed: 11:12 Patient Location: Day Surgery Unit Vital Signs Most Recent Imported Vital Signs: Most Recent Vital Signs Temp Pulse Resp BP Pulse Ox 36.5 C 63 16 116/80 99 10/05/21 11:55 10/05/21 11:55 10/05/21 11:55 10/05/21 11:55 10/05/21 11:55 Pain Score Most Recent Pain Score: Most Recent Pain Score Pain Level 0 10/05/21 11:55 Assessment Mental Status: Awake (Alert & Oriented to Patient Baseline) Airway and Respiratory Function: Patent airway with normal (patient baseline) respiratory exam Cardiovascular Function: Hemodynamically Stable Hydration Status: Adequately Hydrated Nausea & Vomiting: No Nausea or Vomiting Pain: Pt. Denies Any Pain Peripheral Nerve Block: Patient did not receive a nerve block Postoperative Comments:: Patient seen yesterday and was cleared for discharge by anesthesia prior to her discharge.
== END 2021-10-05 12:20 | disposition home or self-care (01) ==
PROVIDERS: PCP Nurse Practitioner Family; Visit Provider Surgery
PROC: 0DJ68ZZ Inspection of Stomach, Via Natural or Artificial Opening Endoscopic (ICD-10-PCS; CPT 43235; principal; 2021-10-05 10:15)
DX: K31.7 Polyp of stomach and duodenum (principal); K29.50 Unspecified chronic gastritis without bleeding; K57.10 Diverticulosis of small intestine without perforation or abscess without bleeding; R10.9 Unspecified abdominal pain
CPT/HCPCS: 43239; 88305

== ENCOUNTER 2021-10-07 02:17 | Outpatient (CLI) | payer OTHER, SELFPAY ==
--- NOTE | 2021-10-07 06:30 | DI.NM_ITS ---
Exam(s) NM HEPATOBILIARY CCK GRP EXAM: NM HEPATOBILIARY CCK GRP CLINICAL HISTORY: RUQ/EPigastric pain, Nausea,r11.0,r10.10. TECHNIQUE: Injected dose: 5 mCi Tc-99 mebrofenin Cholecystokinin IV 1.5 micrograms. COMPARISON: Ultrasound 09/29/2021 was reviewed FINDINGS: There is normal uptake and excretion of radiopharmaceutical by the liver and activity is seen within the gallbladder lumen at 8 minutes post injection, implying that there is no obstruction of the cysti c duct. In response to CCK infusion there is an ejection fraction of the 33 percent demonstrated, this bein g slightly below normal. IMPRESSION: 1. No evidence of obstruction of the cystic duct (which would imply acute cholecystitis). 2. Slightly lower than normal gallbladder ejection fraction in response to CCK infusion. This may in dicate an element of gallbladder dysfunction. Correlation with clinical findings is recommended.
[2021-10-07] MEDS: Sincalide 5 MCG VIAL 1.5 MCG IJ (13:31)
== END 2021-10-07 02:37 ==
PROVIDERS: PCP Nurse Practitioner Family; Visit Provider Surgery
DX: R10.10 Upper abdominal pain, unspecified (principal); R11.0 Nausea
CPT/HCPCS: 78227

== ENCOUNTER 2021-11-22 07:07 | Outpatient (CLI) | payer OTHER, SELFPAY ==
[2021-11-22 12:49] LABS: Source Nasal/Nares
[2021-11-22 16:06] LABS: COVID-19 PCR Negative (Negative)
== END 2021-11-22 07:08 | disposition home or self-care (01) ==
LOC: LBO 07:07
PROVIDERS: PCP Nurse Practitioner Family; Visit Provider Surgery
DX: Z20.822 Contact with and (suspected) exposure to COVID-19 (principal); Z01.818 Encounter for other preprocedural examination
CPT/HCPCS: 87635

== ENCOUNTER 2021-11-23 07:30 | Day surgery (SDC) | payer OTHER, SELFPAY ==
[2021-11-23] VITALS (10 sets, daily range): BP systolic 107–140; BP diastolic 48–85; PULSE 59–71; RESP 12–17; TEMP 36–36.4; O2SAT 92–100; BMI 38.5
--- NOTE | 2021-11-23 04:28 | W.ANESPRE ---
General Info Date of Service Date Performed: 11/23/21 Height: 5 ft 3 in Weight: 98.515 kg Body Mass Index (BMI): 38.5 Surgical Procedure: Operation Date: 11/23/21 09:40 Proposed Procedure Side Surgeon p Cholecystectomy Laparoscopic Poss. Cholangiogram Sharifa Diop MD Meds Allergies and Home Medications Allergies Allergy/AdvReac Type Severity Reaction Status Date / Time bacitracin Allergy Mild rash Verified 11/23/21 07:44 [From Neosporin ([id number]-pbr-[id number])] neomycin Allergy Mild rash Verified 11/23/21 07:44 [From Neosporin ([id number]-uik-xshcg)] polymyxin B Allergy Mild rash Verified 11/23/21 07:44 [From Neosporin ([id number]-[id number])] Penicillins Allergy Unknown Skin Rash Unverified 11/23/21 07:44 mold Allergy Anaphylaxis Verified 11/23/21 07:44 rizatriptan benzoate AdvReac Unknown Other (See Unverified 11/23/21 07:44 [From Maxalt] Comment) Home Medication Medication Instructions Recorded calcium carb,cit ER 600 mg-vit D3 1 cap DAILY 10/17/13 12.5 mcg (500 unit) tablet,ext.rel cetirizine 10 mg capsule (Zyrtec) 10 mg PO DAILY 10/17/13 esomeprazole magnesium 40 mg 40 mg PO DAILY 10/17/13 capsule,delayed release (Nexium) gabapentin 300 mg capsule 300 mg PO DAILY 10/17/13 multivitamin (Daily Multi-Vitamin) 1 cap PO DAILY 10/17/13 sertraline 100 mg tablet (Zoloft) 200 mg PO DAILY 10/17/13 cyclobenzaprine 10 mg tablet 5 mg PO PRN PRN 06/28/15 trazodone 50 mg tablet 50 mg PO HS tab-cap 07/17/17 montelukast 10 mg tablet 10 mg PO DAILY 03/01/18 (Singulair) lamotrigine 25 mg tablet (Lamictal) 50 mg PO DAILY tab 11/17/19 atorvastatin 40 mg tablet 40 mg PO HS 03/12/20 glucosamine sulf dipot 1 cap PO BID 03/12/20 chlr,msm,chond 550 mg-C 30 mg-estrella 1 mg capsule (Glucosamine Chondroitin) acetaminophen 500 mg capsule 500 mg PO Q4H PRN #30 cap 03/16/20 ibuprofen 600 mg tablet 600 mg PO TID PRN #30 tab 03/16/20 albuterol sulfate 90 mcg/actuation 1 puff INHALATION Q4H PRN g 09/22/21 aerosol inhaler (Ventolin HFA) epinephrine 0.3 mg/0.3 mL 0.3 mg IM ONCE 09/22/21 injection, auto-injector halobetasol propionate 0.05 % 1 applic TOPICAL DAILY PRN 09/22/21 topical cream ondansetron HCl 4 mg tablet 4 mg PO Q6H PRN #30 tab 10/06/21 sucralfate 1 gram tablet (Carafate) 1 g PO QACHS #120 tab 10/06/21 prochlorperazine maleate 5 mg 5 mg PO QID PRN #30 tab 11/01/21 tablet (Compazine) Current Visit Medications: Current Medications Generic Name Dose Route Start Last Admin Trade Name Freq PRN Reason Stop Dose Admin Acetaminophen 1,000 mg 11/23/21 06:00 Acetaminophen 500 Mg Tab PO 12/22/21 23:59 PREOP SADI Celecoxib 200 mg 11/23/21 06:00 Celecoxib 200 Mg Cap PO 12/22/21 23:59 PREOP SADI Gabapentin 600 mg 11/23/21 06:00 Gabapentin 300 Mg Cap PO 12/22/21 23:59 PREOP SADI Ringer's Solution 1,000 mls @ 80 mls/hr 11/23/21 06:00 IV 12/22/21 23:59 INFUSION SADI Cefazolin Sodium/Dextrose 2 gm in 50 mls @ 100 mls/hr 11/23/21 06:00 Ancef Duplex IVPB 12/22/21 23:59 PREOP SADI IV Miscellaneous Supplies 1 each 11/23/21 06:00 Iv Access IV 12/22/21 23:59 DIRECTED SADI Sodium Chloride 0 ml 11/23/21 06:00 Normal Saline Flush 10 Ml Syr IV 12/22/21 23:59 PRN PRN Sodium Chloride 0 ml 11/23/21 06:00 Normal Saline 10 Ml Vial IJ 12/22/21 23:59 DIRECTED PRN Sterile Water 0 ml 11/23/21 06:00 Water,Injection,Sterile 10 Ml Vial IJ 12/22/21 23:59 DIRECTED PRN PFSH Active Problems Active Problems: Problem Status Onset Code Biliary dyskinesia K82.8 GERD (gastroesophageal reflux disease) K21.9 Localized osteoarthritis of right knee M17.11 Abdominal pain R10.9 Nausea R11.0 Medical History Medical History Asthma Depression Encounter for screening for other viral diseases Hyperlipidemia Internal derangement of right knee Lichen sclerosus Tear of medial meniscus of right knee Surgical History Surgical History section x2 History of thoracotomy Hx of colonoscopy Hx of esophagogastroduodenoscopy S/P arthroscopic partial medial meniscectomy right knee Tobacco Smoking/Tobacco Use Status: Never Alcohol Alcohol Intake: current Alcohol intake frequency: holidays/special occasions only Alcohol type: beer, wine and hard liquor Substance Use Substance use: Never Substance use type: does not use Vital Signs and Lab Results Vital Signs Most Recent Vital Signs in EMR: Temp Pulse Resp BP Pulse Ox 36.3 C L 64 16 108/67 96 11/23/21 07:53 11/23/21 07:53 11/23/21 07:53 11/23/21 07:53 11/23/21 07:53 Lab Results Blood Type / Crossmatch: No Data to Display Complete Blood Count: No Data to Display Complete Metabolic Panel: No Data to Display Liver Function Panel: No Data to Display Coagulation Panel: No Data to Display Cardiac Panel: No Data to Display Arterial Blood Gas: No Data to Display Venous Blood Gas: No Data to Display Pancreas Panel: No Data to Display Thyroid Panel: No Data to Display Infectious Disease: Coronavirus (COVID-19)(PCR) Negative (Negative) 11/22/21 08:25 11/22/21 Coronavirus 2019 Source Nasal/Nares 11/22/21 08:25 11/22/21 Blood Cultures: No Data to Display Toxicology Panel: No Data to Display Imaging and Studies Imaging and Studies Study information below may be from another EMR and interpreted by another provider. Please see original notes in EMR for more complete details. Echocardiogram Summary: 2018: LVEF 65-70%, mild MR/AR, PAS 30-40 mmhg. Anesthesia Assessment and Plan Anesthesia History Personal History: No History of Anesthesia Complications Family History: No Family History of Anesthesia Complications Exercise Tolerance Exercise Tolerance: Metabolic Equivalents>4 Cardiac & Pulmonary Exam Cardiac Exam: Normal S1/S2 Heart Sounds Pulmonary Exam: Clear Bilateral Breath Sounds Implantable Cardiac Device Does patient have a Pacemaker or an ICD?: No Airway Exam Known Difficult Airway: No Mallampati Class: 3 Mouth Opening: Narrow (< 3cm) Thyromental Distance: Greater than 3 cm Neck Range of Motion: Full ROM Neck Circumference: Normal Teeth Condition: Normal Dentition ASA Classification ASA Score: ASA 2 Emergency Case?: No NPO Status NPO Status: NPO Clears >2 hours, Solids >8 hours Anesthesia Plan Resuscitation Status: Full Code Anesthesia Technique: General Anesthesia Airway Planned: Endotracheal Tube Monitors Used: Standard Monitors Preoperative Comments:: 56 yo female for Lap kelli. Sig PMHx: GERD (esomeprazole), asthma (albuterol, singular), never smoker, occ EtOh Currently having nausea, has had minimal relief from it since June. She also states that she sleeps with HOB at ~ 20 degrees to minimize her reflux. Previous Anes: no issues - LMA 3
--- NOTE | 2021-11-23 06:50 | ROE_ITS ---
Date of service: 11/23/21 Time of Service: 09:58 Operative Note Operative Note DATE OF PROCEDURE: 11/23/21 PRE-OP DIAGNOSIS: Biliary dyskinesia POST-OP DIAGNOSIS: same (and umbilical hernia) PROCEDURE: Laparoscopic Cholecystectomy Incidental Primary repair of umbilical hernia SURGEON: Sharifa Diop MACHINE CLERICAL VERIFIER: Cali Mccabe ANESTHESIA TYPE: General LMA/ETT Refer to Anesthesia Record PATHOLOGY: other (Gallbladder) COMPLICATIONS: None Patient was transported to: PACU Patient's condition: stable Indications: Flor is a pleasant 56-year-old female with biliary dyskinesia and worsening right upper quadrant pain.? She had Covid on October 12.? She developed 24 hours of fever and a sore throat.? She did not have any respiratory symptoms.? Per her protocol we should be able to do her surgery 4 weeks after her infection.? With her pain worsening over the last couple of weeks I will schedule her for surgery next week.? We discussed the procedure in detail as well as the risks and complications.? Discussed the risk of having to go open as well as the risk of a bile leak or bleeding. Risks, benefits, complications were reviewed with the patient in the office.? Complications include but are not limited to bleeding, infection, injury to stomach, small bowel and large bowel, injury to the pancreas, injury to the common bile duct necessitating drainage and referral to tertiary center for repair, bile leak, adverse reactions to the medications, complications of intubation including a sore throat or injury to the uvula, [place], stroke and even .? Questions were entertained and answered to her satisfaction and she wished to proceed.? No guarantees were given or implied. Per our protocol we will test her for Covid prior to surgery.? If it is positive we will still proceed, as this would be a false positive result. Proceed with laparoscopic cholecystectomy Findings: dilated Gallbladder Procedure Description: After informed consent was obtained the patient was brought to the operating room, placed in a supine position and monitors were applied. SCDs were applied to her lower extremities and she was placed under general anesthesia and intubated without difficulty. Her abdomen was then prepped and draped in a sterile fashion using ChloraPrep. At this point a timeout was done and the patient's name, date of , procedure type, allergies to medications, metal in her body, antibiotic and DVT prophylaxis, and fire risk was assessed. At this point Exparel mixed 50/50 with 0.25% Bupivocaine was injected just above the umbilicus into the dermis and subcutaneous tissue. A 5 mm incision was made with an 11 blade. The umbilical hernia was palpated. The skin next to the incision was grasped with penetrating towel clamps and while pulling up on the skin a 5 mm port was placed under direct visualization through the umbilical hernia defect. The abdomen was insuflated and then 3 more ports were placed. A 12 mm port was placed in the subxiphoid area and two 5 mm ports were placed in the right upper quadrant. The liver was inspected and looked normal. The patient's bed was then turned to the left and her head was brought up. The gallbladder was grasped at the body and pushed towards the right shoulder, this allowed me to visualize the neck of the gallbladder. The neck was grasped and pulled towards the right flank and down allowing me to visualize the lymph node. Using a [place] dissector with cautery the lymph node and some fat along the cystic duct was gently dissected away from the tissues. The cystic duct was identified it was normal in size. The duct was dissected 360 degrees using the [place] dissector in order for me to visualize its entrance into the gallbladder. Liver was noted behind it. There were no other structures right behind. Critical view was achieved. 3 clips were placed one proximal and 2 distal and the cystic duct was cut. The cystic artery was then identified and dissected 360 degrees. It was located just medial to the cystic duct. It was visualized going into the gallbladder. Once dissected 3 more clips were placed one proximal and 2 distal and the artery was cut. Using the hook dissector the gallbladder was then dissected away from the liver bed and placed into an Endo Catch bag and pulled through the 12 mm port site. The 12 mm port was placed back into the abdomen under direct visualization. The liver bed was inspected no bleeding was noted. 20 cc of Bupivicaine was injected above the liver bed. Next the 12 mm and the 2 right upper quadrant ports were removed under direct visualization and no bleeding was noted from the fascia.The abdomen was deflated completely and lastly the umbilical port was removed. The umbilical defect was closed with 0 Vicryl. The 12 mm port site fascia was also closed with 0 vicryl. The skin was cleaned and the incisions were closed with 4-0 Vicryl. The skin was dried and skin affix was applied over the closed incisions. Needle, instrument and sponge counts were correct at the end of the case. At this po int the patient was woken up, extubated and taken back to recovery in stable condition. There were no immediate complications.
--- NOTE | 2021-11-23 06:52 | PDOC.DSDIS_ITS ---
Discharge Plan Disposition Patient Disposition: HOME Condition: Stable Discharge Details Reason For Visit: Stacie Peterson Attending Provider: Sharifa Diop Primary Care Provider: Yashira Cole Home Meds and New Rx's Prescriptions: New oxycodone 5 mg tablet 5 mg PO Q6H PRNQty: 14 0RF Continued halobetasol propionate 0.05 % cream 1 applic topical DAILY PRN0RF Rx Instructions: use 3 times a week as needed. epinephrine 0.3 mg/0.3 mL auto-injector 0.3 mg IM ONCE 0RF Rx Instructions: as a single dose; may repeat once albuterol sulfate [Ventolin HFA] 90 mcg/actuation HFA aerosol inhaler 1 puff inhalation Q4H PRN0RF trazodone 50 MG tablet 50 mg PO HS 0RF ondansetron HCl 4 mg tablet 4 mg PO Q6H PRN (Reason: nausea and vomiting) Qty: 30 3RF sucralfate [Carafate] 1 gram tablet 1 g PO QACHS Qty: 120 12RF prochlorperazine maleate [Compazine] 5 mg tablet 5 mg PO QID PRN (Reason: nausea and vomiting) Qty: 30 0RF Rx Instructions: 1-2 tabs q6H prn multivitamin [Daily Multi-Vitamin] 1 EACH tablet 1 cap PO DAILY 0RF sertraline [Zoloft] 100 MG tablet 200 mg PO DAILY 0RF esomeprazole magnesium [Nexium] 40 MG capsule,delayed release(DR/EC) 40 mg PO DAILY 0RF gabapentin 300 MG capsule 300 mg PO DAILY 0RF calcium carb and citrate-vitD3 1 EACH tablet extended release 1 cap DAILY 0RF Zyrtec 10 MG capsule 10 mg PO DAILY 0RF lamotrigine [Lamictal] 25 mg tablet 50 mg PO DAILY 0RF cyclobenzaprine 10 MG tablet 5 mg PO PRN PRN0RF atorvastatin 40 mg Tablet 40 mg PO HS 0RF Glucosamine Chondroitin 550-30-1 mg Capsule 1 cap PO BID 0RF ibuprofen 600 mg tablet 600 mg PO TID PRN (Reason: pain) Qty: 30 0RF acetaminophen 500 mg capsule 500 mg PO Q4H PRN (Reason: pain) Qty: 30 0RF montelukast [Singulair] 10 MG tablet 10 mg PO DAILY 0RF Discharge Instructions Instructions: Laparoscopic Cholecystectomy (DC) Additional Instructions: Activity at Home after surgery: 1. Make sure you walk outside at least 4 times per day 2. You should be able to climb a flight of stairs 3. No driving while in pain or taking pain medications 4. No strenuous activity or heavy lifting for 2 weeks (laparoscopic surgery) Diet, Nutrition, & wound healin. Avoid alcohol until after you are recovered from your surgery 2. Make sure to eat plenty of lean protein (meat, fish, eggs, cottage cheese, beans) 3. Eat a variety of fruits and vegetables. Eat plenty of high fiber foods to avoid constipation. 4. Drink plenty of liquids to stay hydrated and avoid constipation Pain Medications: 1. Tylenol 650mg every 6 hours as needed and Ibuprofen 600 mg every 6 hours as needed. You may alternate between the 2 medications every 3 hours 2. If a narcotic has been prescribed take as directed only for breakthrough pain For Constipation: 1. Take Milk of Magnesia or MiraLax as needed for constipation Other: 1. You may shower daily. Do not scrub the incisions 2. Do not soak the incisions for 1 week 3. You may alternate ice and heat as needed for pain and swelling Wound Care: 1. Keep the incisions clean and dry Please call our office if you develop: 1. Fevers >101.5 2. Nausea or Vomiting 3. Worsening pain 4. Redness and thick discharge from the wounds If after hours please call the Hospital at and ask to speak to the on-call surgeon Referrals: Sharifa Diop MD [ [facility] STAFF PHYSICIAN] - Activity:: Activity as Tolerated Diet:: As Tolerated Discharge Orders Discharge Orders: Discharge Order (Routine); Ordered 11/23/21 Ordered By: Sharifa Diop
[2021-11-23] MEDS: Celecoxib 200 MG CAP PO (08:02)
[2021-11-23] MEDS: Gabapentin 300 MG CAP 600 MG PO (08:02)
[2021-11-23] MEDS: Acetaminophen 500 MG TAB 1000 MG PO (08:02)
[2021-11-23] MEDS: Lactated Ringers 1,000 ML 80 ML IV (08:15)
[2021-11-23] MEDS: ceFAZolin 2 GM/50 ML BAG IVPB (08:48)
[2021-11-23] MEDS: Bupivacaine 0.25% Pres-Free 30 ML VIAL (09:14)
[2021-11-23] MEDS: Bupivacaine LIPOSOME/PF 133 MG/10 ML VIAL IJ (09:14)
--- NOTE | 2021-11-23 09:30 | GB_PTH ---
PATIENT: Flor Kellogg LOC: [facility] U#:[id number] AGE/SX: 56/F ROOM: RE11/23/[address]: Sharifa Diop MD : [id number] BED: DIS: 11/23/2021 SPEC #: [id number] RECD: 11/23/21 12:47 STATUS: LUZ MARIA REQ #: [id number] MARY: 11/23/21 09:[address]: Sharifa Diop DEPT: Surgical Specimen RECD BY: Shaniqua Thomson ENTERED: 11/23/21 12:48 SP TYPE: GB OTHR DR: Yashira Cole Tissues: 1 - GALLBLADDER Procedures: GROSS AND MICRO LEVEL 3 Comments: [id number]
[2021-11-23] MEDS: LORazepam 2 MG/ML VIAL (10:20)
[2021-11-23] MEDS: HYDROmorphone 2 MG/ML VIAL IVP (10:50)
--- NOTE | 2021-11-23 11:22 | W.ANESPOSTOP ---
Postoperative Evaluation Date, Time and Location Date Performed: 11/23/21 Time Performed: :22 Patient Location: Day Surgery Unit Vital Signs Most Recent Imported Vital Signs: Most Recent Vital Signs Temp Pulse Resp BP Pulse Ox 36.1 C L 59 L 12 111/58 L 98 11/23/21 10:49 11/23/21 10:49 11/23/21 10:49 11/23/21 10:49 11/23/21 10:49 Pain Score Most Recent Pain Score: Most Recent Pain Score Pain Level 6 11/23/21 10:49 Assessment Mental Status: Awake (Alert & Oriented to Patient Baseline) Airway and Respiratory Function: Patent airway with normal (patient baseline) respiratory exam Cardiovascular Function: Hemodynamically Stable Hydration Status: Adequately Hydrated Nausea & Vomiting: No Nausea or Vomiting Pain: Pain is tolerable per patient Peripheral Nerve Block: Patient did not receive a nerve block
[2021-11-23] MEDS: oxyCODONE 5 MG TAB PO (11:37)
== END 2021-11-23 12:45 | disposition home or self-care (01) ==
PROVIDERS: PCP Nurse Practitioner Family; Visit Provider Surgery
PROC: 0FT44ZZ Resection of Gallbladder, Percutaneous Endoscopic Approach (ICD-10-PCS; CPT 47563; principal; 2021-11-23 09:30)
DX: K82.8 Other specified diseases of gallbladder (principal); K42.9 Umbilical hernia without obstruction or gangrene; J45.909 Unspecified asthma, uncomplicated; E78.5 Hyperlipidemia, unspecified; K21.9 Gastro-esophageal reflux disease without esophagitis
CPT/HCPCS: 49652; 47562; 88304; J0690; J1100; J1885; J2001; J2060; J2405; J2704; J3475

== ENCOUNTER 2022-02-08 07:29 | Outpatient (REF) | payer OTHER, SELFPAY ==
[2022-02-08 08:23] LABS: Calculated LDL 72 mg/dL (<100); Cholesterol 172 mg/dL (<200); HDL Cholesterol 56 mg/dL (40-60); Triglyceride 220 mg/dL (<150)
== END 2022-02-08 07:30 | disposition home or self-care (01) ==
LOC: LBO 07:29
PROVIDERS: PCP Nurse Practitioner Family; Visit Provider Nurse Practitioner Family
DX: E78.5 Hyperlipidemia, unspecified (principal)
CPT/HCPCS: 36415; 80061

== ENCOUNTER 2023-01-17 01:42 | Outpatient (CLI) | payer OTHER, SELFPAY ==
--- NOTE | 2023-01-17 | DI.MAMMO_ITS ---
Exam(s) MAMMO SCREENING EXAM: MAMMO SCREENING CLINICAL HISTORY: SCREENING, Z12.31 TECHNIQUE: Mammograms were interpreted according to the usual protocol including computer analysis w [employer] CAD system, tomosynthesis and C-view imaging. COMPARISON: 2012 through 2020 FINDINGS: The breasts are composed of scattered fibroglandular densities, Breast Density category B. No suspicious masses or suspicious microcalcifications are seen. No skin thickening or abnormal axillary lymph nodes are seen. There has been no significant change from prior exams. IMPRESSION: BI-RADS Category 1, Negative mammogram Yearly screening mammography is recommended. Breast Density - Category B, scattered fibroglandular densities. A negative radiographic report should not delay biopsy if a dominant or clinically suspicious mass is present. Up to ten percent of cancers are not identified on mammography. A negative report may reinforce clinical impression. Adenosis and dense breasts may obscure an underlying neoplasm. False positive reports average 6 to 10%. Patient will receive a letter notifying them of these results.
== END 2023-01-17 02:02 ==
LOC: DI 01:43
PROVIDERS: PCP Nurse Practitioner Family; Visit Provider Nurse Practitioner Family
DX: Z12.31 Encounter for screening mammogram for malignant neoplasm of breast (principal)
CPT/HCPCS: 77063; 77067

== ENCOUNTER 2023-01-29 03:02 | Outpatient (CLI) | payer OTHER, SELFPAY ==
[2023-01-29 12:36] LABS: ALT 30 U/L (14-59); AST 19 U/L (15-37); Albumin 3.8 g/dL (3.4-5.0); Alkaline Phosphatase 121 U/L (46-116); Anion Gap 9.3 mmol/L (3-11); BUN 19 mg/dL (7-18); Bilirubin, Total 0.4 mg/dL (0.2-1.0); CO2 28.7 mmol/L (21.0-32.0); CREATININE 1.1 mg/dL (0.55-1.02); Calcium 9.2 mg/dL (8.5-10.1); Calculated LDL 72 mg/dL (<100); Chloride 103 mmol/L (98-107); Cholesterol 150 mg/dL (<200); Estimated GFR 58.24 (mL/min/1.73m2); Glucose 91 mg/dL (74-106); HDL Cholesterol 63 mg/dL (40-60); Potassium 3.7 mmol/L (3.5-5.1); Sodium 141 mmol/L (136-145); Total Protein 7.5 g/dL (6.4-8.2); Triglyceride 75 mg/dL (<150)
[2023-01-29 15:57] LABS: Bilirubin, Direct 0.1 mg/dL (0.0-0.2)
== END 2023-01-29 03:03 | disposition home or self-care (01) ==
LOC: LOS 03:02
PROVIDERS: PCP Nurse Practitioner Family; Visit Provider Nurse Practitioner Family
DX: Z00.01 Encounter for general adult medical examination with abnormal findings (principal); E66.9 Obesity, unspecified; Z13.1 Encounter for screening for diabetes mellitus; E78.1 Pure hyperglyceridemia; K76.0 Fatty (change of) liver, not elsewhere classified
CPT/HCPCS: 36415; 80048; 80061; 80076; 83721

== ENCOUNTER 2023-04-05 15:15 | Outpatient (CLI) | payer OTHER, SELFPAY ==
--- NOTE | 2023-04-05 09:15 | DI.RAD_ITS ---
Exam(s) XR HAND LT COMPLETE EXAM: XR HAND LT COMPLETE CLINICAL HISTORY: Squeeze injury from pt. Pain over 2nd-4th DIP/PIP M79.642 PAIN LT HAND. TECHNIQUE: 2D digital imaging was performed. COMPARISON: No exams were available for comparison FINDINGS: 3 views No evidence of acute fracture or dislocation or radiopaque foreign body. No osseous nor erosions. B one density is normal. IMPRESSION: No significant osseous findings in hand. DATA REPOSITORY: RADIATION DOSE DELIVERED:
== END 2023-04-05 15:35 ==
PROVIDERS: PCP Nurse Practitioner Family; Visit Provider Nurse Practitioner Family
DX: M79.642 Pain in left hand (principal)
CPT/HCPCS: 73130

== ENCOUNTER 2023-06-22 10:13 | Outpatient (CLI) | payer OTHER, SELFPAY ==
[2023-06-22 09:32] LABS: ALT 27 U/L (14-59); AST 12 U/L (15-37); Albumin 3.6 g/dL (3.4-5.0); Alkaline Phosphatase 110 U/L (46-116); Anion Gap 5.3 mmol/L (3-11); BUN 22 mg/dL (7-18); Bilirubin, Direct 0.1 mg/dL (0.0-0.2); Bilirubin, Total 0.2 mg/dL (0.2-1.0); CO2 31.7 mmol/L (21.0-32.0); CREATININE 1.1 mg/dL (0.55-1.02); Calcium 9.4 mg/dL (8.5-10.1); Calculated LDL 60 mg/dL (<100); Chloride 102 mmol/L (98-107); Cholesterol 141 mg/dL (<200); Estimated GFR 57.88 (mL/min/1.73m2); Glucose 100 mg/dL (74-106); HDL Cholesterol 53 mg/dL (40-60); LDL CHOLESTEROL 65 mg/dL (<100); Potassium 4.4 mmol/L (3.5-5.1); Sodium 139 mmol/L (136-145); Total Protein 7.5 g/dL (6.4-8.2); Triglyceride 143 mg/dL (<150)
== END 2023-06-22 10:14 | disposition home or self-care (01) ==
LOC: LBO 10:14
PROVIDERS: PCP Nurse Practitioner Family; Visit Provider Nurse Practitioner Family
DX: Z00.00 Encounter for general adult medical examination without abnormal findings (principal); E66.8 Other obesity; Z13.1 Encounter for screening for diabetes mellitus; E78.1 Pure hyperglyceridemia; K76.0 Fatty (change of) liver, not elsewhere classified; R79.89 Other specified abnormal findings of blood chemistry
CPT/HCPCS: 36415; 80048; 80061; 80076; 83721

== ENCOUNTER → 2023-07-06 18:07 | Outpatient (CLI) | payer OTHER, SELFPAY ==
--- NOTE | 2023-07-06 12:40 | DI.RAD_ITS ---
Exam(s) XR ANKLE RT COMPLETE EXAM: XR ANKLE RT COMPLETE CLINICAL HISTORY: Ankle pain,right M25.571. TECHNIQUE: 2D digital imaging was performed. Three views. COMPARISON: CR RIGHT ANKLE COMPLETE from 06/28/2015 FINDINGS: BONES: No acute fracture is present. No bony destructive lesion is seen. Small heel spurs. JOINTS: The ankle mortise is normally aligned. Tibiotalar joint space is maintained. SOFT TISSUE: Normal. IMPRESSION: No acute abnormality. DATA REPOSITORY: RADIATION DOSE DELIVERED:
== END ==
PROVIDERS: PCP Nurse Practitioner Family; Visit Provider Nurse Practitioner Family
DX: M25.571 Pain in right ankle and joints of right foot (principal)
CPT/HCPCS: 73610